=== PATIENT | male | born 1965 | race Caucasian/White ===

== ENCOUNTER 2021-11-04 08:14 | Day surgery (SDC) | payer OTHER ==
[2021-11-04] VITALS (10 sets, daily range): BP systolic 118–142; BP diastolic 72–88
[~2021-11-04] VITALS: Ht 172.7 cm; Wt 77.4 kg
[~2021-11-04 08:14] MED LIST: CAPS60CR6 TP; IBUP-1984 PO; ceFAZolin inj. 2,000 MG in dextrose 5%-water 100 ML IV ONE; famotidine 20mg tablet PO ONE; ringers solution, lacted 1,000 ML IV SCH
[2021-11-04 09:14] LABS: BASOPHILS # (AUTO) 0.1 X10'3 (0-0.2); EOSINOPHILS % (AUTO) 0.7 % (0-6); LYMPHOCYTES # (AUTO) 1.5 X10'3 (1.1-4.8); LYMPHOCYTES % (AUTO) 26.2 % (21-51); MEAN CORPUSCULAR HEMOGLOBIN 29.6 PG (27.0-31.0); MONOCYTES # (AUTO) 0.6 X10'3 (0-0.9); MONOCYTES % (AUTO) 9.7 % (2-12); NEUTROPHILS # (AUTO) 3.7 X10'3 (1.8-7.7); NEUTROPHILS % (AUTO) 62.4 % (42-75); PRE OP HEMATOCRIT 46.3 % (42.0-52.0); PRE OP HEMOGLOBIN 15.7 g/dL (14.0-17.9); PRE OP PLATELET COUNT 222 X10'3 (140-440); RED BLOOD COUNT 5.32 X10'6 (4.70-6.10)
[2021-11-04] MEDS ORDERED: morphine 2 MG/ML inj. syringe IV PRN (09:20)
[2021-11-04] MEDS ORDERED: morphine 4 MG/ML inj SYRINge IV PRN (09:20)
[2021-11-04] MEDS ORDERED: ondansetron/PF 4mg/2ml inj IV PRN (09:20)
[2021-11-04] MEDS ORDERED: meperidine/PF 25mg/ml syringe IV PRN ×3 (09:20)
[2021-11-04] MEDS ORDERED: proCHLORperazine 10 MG/2 ml inj IV PRN (09:20)
[2021-11-04] MEDS ORDERED: ringers solution, lacted 1,000 ML IV SCH (09:20)
[2021-11-04 09:25] LABS: ALANINE AMINOTRANSFERASE 40 U/L (12-78); ALBUMIN 4.2 G/DL (3.4-5.0); ALBUMIN/GLOBULIN RATIO 1.2 (1.1-1.5); ALKALINE PHOSPHATASE 98 IU/L (46-116); ANION GAP 6 (8-16); ASPARTATE AMINO TRANSFERASE 23 U/L (10-37); BILIRUBIN,TOTAL 0.8 MG/DL (0.1-1.0); BLOOD UREA NITROGEN 14 MG/DL (7-18); CALCIUM 9.3 MG/DL (8.5-10.1); CHLORIDE 105 MMOL/L (99-107); CREATININE 1.08 MG/DL (0.60-1.10); GLUCOSE 94 MG/DL (70-104); POTASSIUM 4.1 MMOL/L (3.5-5.1); SODIUM 140 MMOL/L (135-145); TOTAL CARBON DIOXIDE 28.7 MMOL/L (24-32); TOTAL PROTEIN 7.8 G/DL (6.4-8.2); eGFR 70 ML/MIN
[2021-11-04 09:43] LABS: PRE OP PARTIAL THROMB. TIME 31 SECONDS (22-32)
[2021-11-04] MEDS ORDERED: gelatin sponge, absorbable (Gelfoam 100) sponge TP ONE (10:15)
[2021-11-04] MEDS ORDERED: epiNEPHrine 1 mg/ml inj ONE (10:15)
[2021-11-04] MEDS ORDERED: Thrombin (Bovine) 5,000 unit vial TP ONE (10:15)
[2021-11-04] MEDS ORDERED: ROPIVAcaine 0.5% (5mg/ml) 30ml vial ONE (10:15)
[2021-11-04] MEDS ORDERED: vancomycin 1,000mg inj ONE (10:15)
[2021-11-04] MEDS ORDERED: ondansetron/PF 4mg/2ml inj ONE (11:03)
[2021-11-04] MEDS ORDERED: propofol 10mg/ml 20ml vial IV ONE (11:03)
[2021-11-04] MEDS ORDERED: dexamethasone sod phosphate 10mg/ml inj ONE (11:03)
[2021-11-04] MEDS ORDERED: LIDOcaine 1% (10mg/ml)w/preservative inj. 20ml MDV ONE (11:03)
[2021-11-04] MEDS ORDERED: sevoflurane 250ml liquid IH ONE (11:03)
[2021-11-04] MEDS ORDERED: cloNIDine hcl/PF 100mcg/ml inj ONE (11:17)
--- NOTE | 2021-11-04 13:10 | NUR ---
Received from OR via [facility], accompanied by Anesthesiologist DR HUMPHRIES and report given by Anesthesiologist AND CENTER HUMAN RESOURCES MANAGER. PT DROWSY, DENIES PAIN. RIGHT KNEE W/RAJ WRAP COVERING INCISION/DRSG CDI, LEG IN BRACE. Addendum: 11/04/21 at 1338 by Yadira Campbell RN Amended: Links added.
[2021-11-04] MEDS ORDERED: midazolam 1 mg/ML 2ml injection ONE (13:12)
[2021-11-04] MEDS ORDERED: fentaNYL /PF 50mcg/ml 5ml ampule ONE (13:12)
[2021-11-04] MEDS ORDERED: ketorolac trometh. 30mg/ml inj. IV ONE (13:50)
[2021-11-04] MEDS ORDERED: HYDROcodone/acetaminophen 10/325mg tab PO ONE (13:50)
[2021-11-04] MEDS ORDERED: acetaminophen 1,000mg/100ml IV 100 ML IV ONE (13:50)
--- NOTE | 2021-11-04 14:40 | NUR ---
PTS PAIN IMPROVED, NO C/O. PT DRESSED AND ASSISTED TO W/C AND INTO CORRECTIONAL VAN BY CORRECTIONAL OFFICERS W/O INCIDENT. D/C INSTRUCTIONS SENT W/CORRECTIONAL OFFICERS. Addendum: 11/04/21 at 1455 by Yadira Campbell RN Amended: Links added.
== END 2021-11-04 14:40 ==
LOC: PAS 08:14 → EEVIPCON 11:00 → PAS 14:40
PROVIDERS: ATTEND Orthopaedic Surgery
DX: S83.511A Sprain of anterior cruciate ligament of right knee, initial encounter (principal); S83.241A Other tear of medial meniscus, current injury, right knee, initial encounter; X58.XXXA Exposure to other specified factors, initial encounter; Y93.89 Activity, other specified; Y92.89 Other specified places as the place of occurrence of the external cause; Y99.8 Other external cause status; Z79.899 Other long term (current) drug therapy; Z79.01 Long term (current) use of anticoagulants; G89.18 Other acute postprocedural pain; Z98.890 Other specified postprocedural states
CPT/HCPCS: 29881; 29888; 36415; 64447; 76942; 80053; 82948; 85025; 85610; 85730; 87811; C1713; C1762; J0131; J0171; J0690; J0735; J1100; J1885; J2175; J2250; J2405; J2704; J2795; J3010; J3370; J3490; J7030; J7060; J7120; L1832; Z7506; Z7508; Z7512; A4215; A4618; A6449; A7000